=== PATIENT | female | born 1985 | race Caucasian/White ===

== ENCOUNTER 2017-06-10 18:27 | Inpatient (IN) | payer OTHER ==
[~2017-06-10] VITALS: Ht 165.1 cm; Wt 88.2 kg
[~2017-06-10 18:27] MED LIST: IBUP100O23 PO
[2017-06-16] MEDS ORDERED: MISOPROSTOL 200 MCG TABLET ONE ×2 (09:41→11:20)
[2017-06-16] MEDS ORDERED: LIDOCAINE 1%, 20ML ONE ×2 (09:41→11:20)
[2017-06-16] MEDS ORDERED: NEWBORN KIT ONE ×3 (09:41→14:22)
[2017-06-16] MEDS ORDERED: OXYTOCIN 30U/ 0.9% NaCL 500ML 500 ML ONE ×2 (09:41→11:20)
[2017-06-16] MEDS ORDERED: LACTATED RINGERS 1,000 ML IV SCH (09:44)
[2017-06-16] MEDS: D5%-LACTATED RINGERS 1,000 ML IV SCH ×2 (09:44→17:44)
[2017-06-16] MEDS ORDERED: OXYTOCIN 30U/ 0.9% NaCL 500ML 500 ML IV ONE (09:44)
[2017-06-16] MEDS ORDERED: PREN1TAB60 PO (09:48)
[2017-06-16] MEDS ORDERED: VALA500T4 PO (09:48)
[2017-06-16 09:52] VITALS: BP 129/72
[2017-06-16] MEDS ORDERED: PLEASE ENTER HEIGHT AND WEIGHT MC SCH (10:00)
[2017-06-16] MEDS ORDERED: FENTANYL PF 100 MCG/2ML IV PRN (10:00)
[2017-06-16] MEDS ORDERED: ONDANSETRON 2MG/ML, 2ML IVPush PRN (10:00)
[2017-06-16] MEDS ORDERED: FENTANYL PF 100 MCG/2ML IVPush PRN (10:00)
[2017-06-16] MEDS ORDERED: TERBUTALINE 1 MG/ML, 1ML IVPush PRN (10:00)
[2017-06-16 10:29] LABS: BASOPHILS # (AUTO) 0.03 x10^3/uL (0-0.1); BASOPHILS % (AUTO) 0 % (0-1); EOSINOPHILS % (AUTO) 1 % (1-7); LYMPHOCYTES # (AUTO) 1.92 x10^3/uL (1-3.4); LYMPHOCYTES % (AUTO) 13 % (22-44); MD NO; MEAN CORPUSCULAR HEMOGLOBIN 30.8 pg (27.0-34.8); MEAN CORPUSCULAR HGB CONC 33.8 g/dL (32.4-35.8); MEAN CORPUSCULAR VOLUME 91.2 fL (80-100); MEAN PLATELET VOLUME 7.7 fL (7.4-10.4); MONOCYTES # (AUTO) 1.12 x10^3/uL (0.2-0.8); MONOCYTES % (AUTO) 7 % (2-9); NEUTROPHILS # (AUTO) 11.98 x10^3/uL (1.8-6.8); NEUTROPHILS % (AUTO) 79 % (42-75); PLATELET COUNT 228 x10^3/uL (130-400); RED BLOOD COUNT 4.01 x10^6/uL (3.82-5.3)
[2017-06-16] MEDS ORDERED: OXYTOCIN 10 UNITS/ML, 1ML ONE (11:20)
[2017-06-16] MEDS ORDERED: OXYTOCIN 30U/ 0.9% NaCL 500ML 500 ML IV SCH (14:10)
[2017-06-16] MEDS ORDERED: IBUPROFEN 600 MG TABLET PO PRN (14:30)
[2017-06-16] MEDS ORDERED: MISOPROSTOL 200 MCG TABLET SL PRN (14:30)
[2017-06-16] MEDS ORDERED: OXYcodone/APAP 5/325MG TABLET PO PRN (14:30)
[2017-06-16] MEDS ORDERED: ACETAMINOPHEN 325 MG TABLET PO PRN (14:30)
[2017-06-16] MEDS ORDERED: ONDANSETRON 2MG/ML, 2ML IV PRN (14:30)
[2017-06-16 16:20] VITALS: BP 125/72
[2017-06-16] MEDS: DOCUSATE 100 MG CAPSULE PO PRN (19:14)
[2017-06-16 19:15] VITALS: BP 128/77
[2017-06-16] MEDS ORDERED: SODIUM CHLORIDE FLUSH 3ML SYRINGE IVF SCH (21:00)
[2017-06-16 21:42] LABS: MEAN CORPUSCULAR HEMOGLOBIN 30.2 pg (27.0-34.8); MEAN CORPUSCULAR HGB CONC 33.2 g/dL (32.4-35.8); MEAN CORPUSCULAR VOLUME 90.7 fL (80-100); MEAN PLATELET VOLUME 7.8 fL (7.4-10.4); PLATELET COUNT 227 x10^3/uL (130-400); RED BLOOD COUNT 4.04 x10^6/uL (3.82-5.3); RED CELL DISTRIBUTION WIDTH 14.7 % (9.6-15.2)
[2017-06-16 22:08] LABS: BASOPHILS # (AUTO) 0.03 x10^3/uL (0-0.1); BASOPHILS % (AUTO) 0 % (0-1); EOSINOPHILS # (AUTO) 0.05 x10^3/uL (0-0.4); EOSINOPHILS % (AUTO) 0 % (1-7); LYMPHOCYTES # (AUTO) 2.16 x10^3/uL (1-3.4); LYMPHOCYTES % (AUTO) 11 % (22-44); MD SCAN; MONOCYTES % (AUTO) 4 % (2-9); NEUTROPHILS # (AUTO) 17.21 x10^3/uL (1.8-6.8); NEUTROPHILS % (AUTO) 85 % (42-75)
[2017-06-17 00:01] VITALS: BP 115/78
[2017-06-17] MEDS: D5%-LACTATED RINGERS 1,000 ML IV SCH (01:44)
[2017-06-17 03:54] VITALS: BP 112/68
[2017-06-17] MEDS ORDERED: IBUP-1223 PO (08:36)
[2017-06-17] MEDS ORDERED: PRENATAL VIT/IRON/FA 1 EACH TABLET PO SCH (09:00)
[2017-06-17 09:30] VITALS: BP 126/80
[2017-06-17] MEDS: DOCUSATE 100 MG CAPSULE PO PRN (09:33)
== END 2017-06-17 14:50 | disposition home or self-care (01) | DRG 775 ==
LOC: LDIP 06-16 09:31 → 2NW 06-16 16:23
PROVIDERS: ADMIT Obstetrics & Gynecology; ATTEND Obstetrics & Gynecology
PROC: 10E0XZZ Delivery of Products of Conception, External Approach (ICD-10-PCS; principal; 2017-06-16)
DX: O80 Encounter for full-term uncomplicated delivery (principal); Z37.0 Single live birth; Z3A.40 40 weeks gestation of pregnancy
CPT/HCPCS: 36415; 85025; 86850; 86900; J2590